=== PATIENT | male | born 1990 | race Caucasian/White ===

== ENCOUNTER → 2022-08-01 13:09 | Outpatient (CLI) | payer MEDICARE, MEDICAID, SELFPAY ==
--- NOTE | 2022-08-01 13:10 | CA_ITS ---
APPROVED REPORT Exam: Exercise Treadmill Technologist: Demi Moore Ht: 5 ft 8 in Wt: 175 lbs BSA: 1.93 m2 HR: 59 bpm BP: 118/77 mmHg Medical History Medications: Omeprazole,,,,, Gabapentin,,,,, Lexapro,,,,, Buspirone,,,,, SyMBICORT,,,,, Coreg,,,,, Albuterol,,,,, Suboxone,,,,, Levocetirizine,,,,, TorSEMIDE,,,,, DOxycycline,,,,, Potassium,,,,, Stress Test Details Test: José HR Resting HR: 66 bpm Max Heart Rate (APMHR): [phone] bpm Max HR Achieved: 152 bpm Target HR (85% APMHR): 158.071297 bpm % of APMHR: 81.28 Recovery HR: 88 bpm BP Resting BP: 120/86 mmHg Max BP: 166/87 mmHg Recovery BP: 135.0/84.0 mmHg ECG Clinical Exercise duration: 09:56 min Highest Stage Achieved: Exercise capacity: 12.8 METs Stress ECG Conclusion Symptoms: Mild arlene pain,shortness of air. Arrhythmias/Ectopy: None ST-T Changes: No ST elevation or depression. Conclusion: No ischemic changes. Test Summary REST . . . . . . . Sitting REST . . . . . . . Standing REST 02:23 0.0 0.0 66 . 120/ 86 . . Stage 1 01:00 10.0 1.7 88 . . . . Stage 1 02:00 10.0 1.7 100 . . . . Stage 1 03:00 10.0 1.7 102 . 126/ 72 . . Stage 2 01:00 12.0 2.5 110 . . . . Stage 2 02:00 12.0 2.5 111 . . . . Stage 2 03:00 12.0 2.5 112 . 130/ 80 . . Stage 3 01:00 14.0 3.4 124 . . . . Stage 3 02:00 14.0 3.4 134 . . . . Stage 3 03:00 14.0 3.4 139 . . . . Stage 4 00:56 16.0 4.2 150 . . . Stop exercise at 09:56 RECOVERY 01:00 0.0 0.0 116 . . . . RECOVERY 02:00 0.0 0.0 92 . 166/ 87 . . RECOVERY 03:00 0.0 0.0 87 . 166/ 87 . . RECOVERY 04:00 0.0 0.0 93 . 147/ 85 . . RECOVERY 05:00 0.0 0.0 89 . 135/ 84 . . RECOVERY 06:00 0.0 0.0 88 . 135/ 84 . . RECOVERY 06:40 0.0 0.0 87 . 135/ 84 . . Electronically signed by : Aldo Parkinson MD 08/02/2022 10:28:33
== END ==
PROVIDERS: PCP Family Medicine; Visit Provider Physician Assistant
DX: I10 Essential (primary) hypertension (principal); K21.9 Gastro-esophageal reflux disease without esophagitis; R00.0 Tachycardia, unspecified; R06.09 Other forms of dyspnea; R07.89 Other chest pain; Z82.49 Family history of ischemic heart disease and other diseases of the circulatory system; Z87.891 Personal history of nicotine dependence
CPT/HCPCS: 93017; 93306

== ENCOUNTER → 2022-09-09 08:39 | Outpatient (CLI) | payer MEDICARE, MEDICAID, SELFPAY ==
[2022-09-09 08:59] VITALS: BMI 25.8
[2022-09-09 09:27] LABS: Chloride 99 mmol/L (98-107); Potassium 3.7 mmoL/L (3.5-5.1); Sodium 139 mmol/L (136-145)
[2022-09-09 09:30] LABS: Blood Urea Nitrogen 17 mg/dl (9-20); Creatinine Clearance Estimated 127 mL/min (50-200); Estimated Glomerular Filt Rate 97 ml/min (>60); GFR (African American) 118 ML/MIN (>60)
[2022-09-09 09:31] LABS: Anion Gap 10.7 mEq/L (5-15); Carbon Dioxide 33 mmol/L (22.0-30.0); Glucose 65 mg/dl (74-100)
[2022-09-09 10:20] VITALS: BP 103/70; PULSE 63; RESP 18; O2SAT 97
== END ==
PROVIDERS: PCP Family Medicine; Visit Provider Physician Assistant
DX: I10 Essential (primary) hypertension (principal); K21.9 Gastro-esophageal reflux disease without esophagitis; R06.09 Other forms of dyspnea; R07.89 Other chest pain; Z82.49 Family history of ischemic heart disease and other diseases of the circulatory system; Z87.891 Personal history of nicotine dependence
CPT/HCPCS: 75574; 80048; Q9967

== ENCOUNTER 2023-09-15 09:53 | Outpatient (CLI) | payer MEDICARE, MEDICAID, SELFPAY ==
--- NOTE | 2023-09-15 09:53 | CA_ITS ---
APPROVED REPORT EXAM: Comprehensive 2D, Doppler, and color-flow Echocardiogram Ad Copy Writer: Margarita Macias RT(R) Ht: 5 ft 8 in Wt: 189lbs BSA: 1.99 BP: 115/70 mmHg Indications: atypical CP, smoker, edema, HTN, SOB, GERD, asthma 2D Dimensions LA Volume 18.30 mL LA Volume Index 9.15 mL/m2 (M/F) 16-34 EF AP4 64.10 % GL Strain -19.5 % M-Mode Dimensions RVDd 2.57 cm (0.9-2.6) LA Diam 3.28 cm (1.9-4.0) LVDd 5.44 cm (3.5-5.7) LVDs 4.03 cm (3.5-5.7) IVSd 0.78 cm (0.6-1.1) PWd 0.60 cm (0.6-1.1) EF (Teich) 50.40% FS 25.90% EDV (Teich) 143.70 mL ESV (Teich) 71.30 mL LV Diastology E Decel Time 227 (160-240 msec) E/A Ratio 1.2 Mitral Valve MV E Max Rodney. 94.0 (40-130 cm/s) MV A Velocity 77.0 (40-130 cm/s) E/A Ratio 1.23 MV PHT 66.0 ms Left Ventricle The left ventricle is normal size. The left ventricular systolic function is normal. The left ventricular ejection fraction is within the normal range. There is normal left ventricular wall thickness. There is normal LV segmental wall motion. The left ventricular diastolic function is normal. LVEF is 55%. Right Ventricle The right ventricle is normal size. The right ventricular systolic function is normal. Atria The left atrium size is normal. The right atrium size is normal. There is no Doppler evidence of interatrial shunt. Aortic Valve The aortic valve opens well. There is no aortic valvular stenosis. Trace aortic regurgitation. Mitral Valve The mitral valve is normal in structure. No evidence of mitral valve stenosis. There is no mitral valve regurgitation noted. Tricuspid Valve The tricuspid valve leaflets are thin and pliable. Trace tricuspid regurgitation. There is insufficient TR jet to estimate RVSP. Pulmonic Valve The pulmonary valve is normal in structure. Trace pulmonic regurgitation. Great Vessels The aortic root is normal in size. The ascending aorta is normal in size. IVC is normal in size and collapses >50% with inspiration. Pericardium There is no pericardial effusion. Other Information Study Quality: Fair Conclusion Normal biventricular systolic function. No significant valvular stenosis or regurgitation. Electronically signed by : Bernadette Ferguson MD 09/19/2023 11:36:44
== END 2023-09-15 23:59 | disposition home or self-care (01) ==
LOC: RT 09:53
PROVIDERS: PCP Family Medicine; Visit Provider Physician Assistant
DX: R07.89 Other chest pain (principal); R06.09 Other forms of dyspnea; I10 Essential (primary) hypertension; J45.909 Unspecified asthma, uncomplicated; A31.0 Pulmonary mycobacterial infection; Z87.891 Personal history of nicotine dependence
CPT/HCPCS: 93306

== ENCOUNTER 2024-03-13 12:00 | Outpatient (CLI) | payer MEDICARE, MEDICAID, SELFPAY ==
[2024-03-13 19:21] LABS: Alanine Aminotransferase 17 U/L (12-78); Albumin Level 3.9 g/dl (3.5-5.0); Albumin/Globulin Ratio 1.9 (1.1-1.8); Alkaline Phosphatase 88 U/L (38-126); Anion Gap 7.4 mEq/L (5-15); Aspartate Amino Transferase 27 U/L (17-59); Bilirubin,Total 0.4 mg/dl (0.2-1.3); Blood Urea Nitrogen 17 mg/dl (9-20); Calcium 8.6 mg/dl (8.4-10.2); Carbon Dioxide 33 mmol/L (22.0-30.0); Chloride 104 mmol/L (98-107); Estimated Glomerular Filt Rate 76 ml/min (>60); GFR (African American) 92 ML/MIN (>60); Globulin 2.1 g/dL (1.3-3.2); Glucose 88 mg/dl (74-100); Potassium 4.4 mmoL/L (3.5-5.1); Sodium 140 mmol/L (136-145)
[2024-03-13 19:28] LABS: C-Reactive Protein 7.5 mg/L (0-4)
[2024-03-13 19:51] LABS: Thyroid Stimulating Hormone 2.78 uIU/mL (0.465-4.68)
== END 2024-03-13 23:59 | disposition home or self-care (01) ==
LOC: LAB.DROPOF 03-14 09:07
PROVIDERS: PCP Family Medicine; Visit Provider Family Medicine
DX: I10 Essential (primary) hypertension (principal)
CPT/HCPCS: 80053; 84443; 86140